=== PATIENT | female | born 1990 | race Caucasian/White ===

== ENCOUNTER 2016-11-29 16:39 | Emergency (ER) | payer OTHER ==
[~2016-11-29] VITALS: Ht 175.3 cm; Wt 61.4 kg
[~2016-11-29 16:39] MED LIST: AMITRIPTYLINE H25 M1 PO; B-12 100 MCG; BENADRYL50 MG PO; Birth Control; CARAFATE 1GM1 G PO; CARAFATE S1 GM/10 ML PO; CEFTIN 250250 MG/TAB PO; CEPHALEXIN500 M1 PO; DEPO-PROVER150 MG/M1 IM; FLAGYL500 MG PO; LEXAPRO20 MG PO; MACROBID 1100 MG/CAP PO; MIRENA52 MG IY; MOBIC15 MG PO; NEXIUM 40MG40 MG PO; NORCO 325 MG-51 TAB PO; ORTHO TRI-CYCLE1 TAB PO; PERCOCET 325 MG1 TA2 PO; PRIL40 PO; PRILOSEC 20MG20 MG PO; PROBIOTIC-MAJOR PO; PYRIDIUM200 M1 PO; SKELAXIN 800MG800 MG PO; TYLENOL #4 (1 UDTAB PO; TYLENOL W/COD1 UDTAB PO; ULTRAM 50MG TAB50 MG PO; VITAMIN D32000 IU PO; WELLBUTRIN 100100 MG PO; XANAX 0.5MG0.5 MG PO; ZOFRAN 4MG T4 MG/TAB PO; ZOLOFT 25MG25 MG PO; ZOLOFT 50MG50 MG PO; [UNRECOGNIZED DRUG - SUPPLY]
[2016-11-29 16:41] VITALS: TEMP 98.4
[2016-11-29 18:18] LABS: BASO % 0.6 % (0.0-2.0); EOS # 0.1 (0.0-0.7); EOS % 1.5 % (0-4.0); GRAN # 3.8 (1.4-6.5); GRAN % 56.5 % (42.2-75.2); HEMATOCRIT 42.2 % (37.0-47.0); HEMOGLOBIN 14.3 g/dl (12.5-16.0); LYMPH # 2.3 (1.2-3.4); LYMPH % 34.8 % (20.0-51.0); MEAN CELL VOLUME 94 fl (80.0-100.0); MEAN CORPUSCULAR HEMOGLOBIN 32 pg (27.0-31.0); MEAN CORPUSCULAR HGB CONC 34 g/dl (33.0-37.0); MEAN PLATELET VOLUME 10.3 fl (7.4-10.4); MONO # 0.4 (0.1-0.6); MONO % 6.3 % (1.7-9.3); PLATELET COUNT 205 K/mm3 (130-400); RED BLOOD COUNT 4.51 M/mm3 (4.10-5.30); REDCELL DISTRIBUTION WIDTH-CV 12.4 % (11.5-14.5); WHITE BLOOD COUNT 6.7 K/mm3 (4.8-10.8)
[2016-11-29 18:30] LABS: ANION GAP 11 mmol/L (7-16); BLOOD UREA NITROGEN 11 mg/dL (7-17); CARBON DIOXIDE 27 mmol/L (22-30); CHLORIDE 101 mmol/L (98-107); CREATININE, serum 0.71 mg/dL (0.52-1.25); GLUCOSE 82 mg/dL (74-106); POTASSIUM 3.9 mmol/L (3.4-5.0); SODIUM 139 mmol/L (137-145)
[2016-11-29 18:31] LABS: ACETAMINOPHEN < 10 ug/mL (10-30); SALICYLATE < 1.0 mg/dL
[2016-11-29 19:18] LABS: AMPHETAMINE URINE NEGATIVE; BARBITURATES URINE NEGATIVE; BENZODIAZEPINES URINE POSITIVE; BUPRENORPHINE URINE NEGATIVE; METHADONE URINE NEGATIVE; OPIATES URINE POSITIVE; OXYCODONE URINE NEGATIVE; PHENCYCLIDINE URINE NEGATIVE; PROPOXYPHENE URINE NEGATIVE; THC CANNABINOIDS URINE POSITIVE
[2016-11-30 00:03] VITALS: BP 128/80; PULSE 82
== END 2016-11-30 00:06 | disposition home or self-care (01) ==
LOC: COL.ER 16:39
PROVIDERS: Physician Assistant
DX: F32.9 Major depressive disorder, single episode, unspecified (principal); R45.851 Suicidal ideations

== ENCOUNTER 2019-04-22 22:58 | Emergency (ER) | payer OTHER ==
[~2019-04-22] VITALS: Ht 175.3 cm; Wt 70.5 kg
[2019-04-22 23:18] VITALS: BP 111/76; TEMP 98.3
[2019-04-23 01:15] VITALS: PULSE 79
== END 2019-04-23 01:15 | disposition home or self-care (01) ==
LOC: COL.ER 22:58
DX: S20.102A Unspecified superficial injuries of breast, left breast, initial encounter (principal); E05.90 Thyrotoxicosis, unspecified without thyrotoxic crisis or storm; F12.90 Cannabis use, unspecified, uncomplicated; W26.8XXA Contact with other sharp object(s), not elsewhere classified, initial encounter

== ENCOUNTER 2020-08-28 15:23 | Emergency (ER) | payer OTHER ==
[~2020-08-28] VITALS: Ht 175.3 cm; Wt 77.3 kg
[2020-08-28 15:28] VITALS: TEMP 98.8
[2020-08-28] MEDS ORDERED: NEXPLANON68 MG ID (15:59)
[2020-08-28] MEDS ORDERED: ZOFRAN 4MG T4 MG/TAB PO (16:00)
[2020-08-28] MEDS ORDERED: ADDERALL10 MG PO (16:00)
[2020-08-28] MEDS ORDERED: TYLENOL W/COD1 UDTAB PO (16:00)
[2020-08-28] MEDS ORDERED: ATARAX 25MG25 MG/TAB PO (17:21)
[2020-08-28 17:36] VITALS: BP 120/74; PULSE 82
== END 2020-08-28 17:44 | disposition home or self-care (01) ==
LOC: COL.ER 15:23
DX: F41.9 Anxiety disorder, unspecified (principal)

== ENCOUNTER 2020-12-03 14:05 | Emergency (ER) | payer OTHER ==
[~2020-12-03] VITALS: Ht 175.3 cm; Wt 72.7 kg
[~2020-12-03 14:05] MED LIST changes: +ADDERALL10 MG PO; +ATARAX 25MG25 MG/TAB PO; +NEXPLANON68 MG ID
[2020-12-03 14:20] VITALS: TEMP 98.5
[2020-12-03 15:01] LABS: COLLECTION METHOD CLEAN CATCH
[2020-12-03 15:22] LABS: MUCOUS Present /lpf; PH 5 (5-8); URINE APPEARANCE Hazy; URINE BACTERIA None Seen /hpf; URINE BILIRUBIN Negative (NEGATIVE); URINE BLOOD Negative (NEGATIVE); URINE COLOR Yellow; URINE GLUCOSE Negative (NEGATIVE); URINE KETONE Trace (NEGATIVE); URINE LEUKOCYTE ESTERASE Negative (NEGATIVE); URINE NITRATE Negative (NEGATIVE); URINE PROTEIN(semi-quant) Negative (NEGATIVE); URINE RBC 0-2 /hpf; URINE UROBILINOGEN Negative (NEGATIVE)
[2020-12-03 15:26] LABS: TRICYCLIC ANTIDEPRESS URINE NEGATIVE
[2020-12-03 15:28] LABS: BASO # 0.1 (0.0-0.2); BASO % 1.1 % (0.0-2.0); EOS # 0.1 (0.0-0.7); EOS % 1.9 % (0-4.0); GRAN # 2.9 (1.4-6.5); GRAN % 51.1 % (42.2-75.2); HEMATOCRIT 42.7 % (37.0-47.0); HEMOGLOBIN 14.3 g/dl (12.5-16.0); LYMPH # 2.2 (1.2-3.4); LYMPH % 38.5 % (20.0-51.0); MEAN CELL VOLUME 95 fl (80.0-100.0); MEAN CORPUSCULAR HEMOGLOBIN 32 pg (27.0-31.0); MEAN CORPUSCULAR HGB CONC 34 g/dl (33.0-37.0); MEAN PLATELET VOLUME 10.2 fl (7.4-10.4); MONO # 0.4 (0.1-0.6); MONO % 7.2 % (1.7-9.3); PLATELET COUNT 246 K/mm3 (130-400); RED BLOOD COUNT 4.52 M/mm3 (4.10-5.30); REDCELL DISTRIBUTION WIDTH-CV 12.4 % (11.5-14.5)
[2020-12-03 15:43] LABS: ALANINE AMINOTRANSFERASE 19 U/L (4-34); ALBUMIN 4.9 gm/dL (3.5-5.0); ALKALINE PHOSPHATASE 42 U/L (50-136); ANION GAP 14 mmol/L (7-16); AST,SGOT 28 U/L (15-37); BILIRUBIN,TOTAL 0.5 mg/dL (0.0-1.0); BLOOD UREA NITROGEN 11 mg/dL (7-17); CALCIUM 9.9 mg/dL (8.4-10.2); CARBON DIOXIDE 21 mmol/L (22-30); CHLORIDE 105 mmol/L (98-107); CREATININE, serum 0.65 (0.52-1.25); GLUCOSE 85 mg/dL (74-106); POTASSIUM 3.8 mmol/L (3.4-5.0); SODIUM 140 mmol/L (137-145); TOTAL PROTEIN 8.1 gm/dL (6.4-8.2)
[2020-12-03 15:46] LABS: ACETAMINOPHEN < 10 ug/mL (10-30); ALCOHOL(ethanol),MEDICAL < 10 mg/dL; SALICYLATE < 1.0 mg/dL
[2020-12-03] MEDS ORDERED: LAMICTAL 100MG100 MG PO (16:12)
[2020-12-03 19:21] VITALS: BP 107/79; PULSE 84
== END 2020-12-03 19:21 | disposition home or self-care (01) ==
LOC: COL.ER 14:05
PROVIDERS: Nurse Practitioner
DX: F32.9 Major depressive disorder, single episode, unspecified (principal); F41.9 Anxiety disorder, unspecified; Z90.89 Acquired absence of other organs; Z32.02 Encounter for pregnancy test, result negative; Z88.8 Allergy status to other drugs, medicaments and biological substances; Z91.040 Latex allergy status